=== PATIENT | female | born 1935 | race Caucasian/White ===

== ENCOUNTER → 2017-09-06 17:07 | Outpatient (CLI) | payer MEDICARE, SELFPAY ==
--- NOTE | 2017-09-06 17:10 | RAD_ITS ---
STUDY: X-RAY - LUMBAR SPINE REASON FOR EXAM: Female, 82 years old. Back pain. Leg pain. TECHNIQUE: 3 view(s) of the lumbar spine were obtained. COMPARISON: MRI of the lumbar spine, January 27, 2017. Lumbar spine, October 05, 2016. FINDINGS: Normal lumbar lordosis. There is a levoscoliosis with convexity at L2-3. There is a normal alignment of the vertebrae. There is multilevel endplate spondylosis of the lumbar vertebrae. There is multi-level degenerative disc disease with multi-level disc space narrowing. There is no evidence of acute fracture or loss of vertebral axial height. There is atherosclerotic calcification of the abdominal aorta without a demonstrated aneurysm. RAD/Lumbar Spine 2 or 3 Views IMPRESSION: Scoliosis and degenerative changes of the lumbar spine. Findings appear grossly unchanged. Electronically Signed: Pablo Marshall DO at 15:40 EDT Tel [phone], Service support ,
== END ==
PROVIDERS: Family Provider Internal Medicine; PCP Internal Medicine; Visit Provider Anesthesiology Pain Medicine
DX: M54.9 Dorsalgia, unspecified (principal); M79.606 Pain in leg, unspecified
CPT/HCPCS: 72100

== ENCOUNTER → 2017-09-27 08:37 | Outpatient (CLI) | payer MEDICARE, SELFPAY ==
--- NOTE | 2017-09-27 09:22 | BI_ITS ---
STEREOTACTIC CORE BIOPSY REASON FOR EXAM: Female, 82 years old. Microcalcifications in the superior retroareolar region of the right breast. PERTINENT HISTORY: Non-contributory. COMPARISON: None. TECHNIQUE: (All elements of maximal sterile barrier technique followed, including US elements as applicable) Upon arrival to the breast imaging department the patient's identification was confirmed and the RIGHT breast was marked according to time-out protocol. Stereotactic core biopsy and clip placement, to include potential risks and complications, was explained in full to the patient. Written and verbal consent were obtained prior to initiation of the procedure. The patient was placed in prone position on the stereotactic biopsy table with the RIGHT breast in craniocaudad compression. Major Account Manager and stereotactic views were then obtained for targeting. The RIGHT breast was prepped and draped in standard sterile fashion and local anesthesia was obtained with 1% buffered lidocaine. A small dermatotomy was then made to introduce the core biopsy needle. Multiple core samples were obtained with a 8 gauge vacuum assisted core biopsy needle. The specimen's were radiographed to determine the presence of calcifications and submitted in formalin for pathology. A titanium clip was then deployed into the biopsy cavity. Upon completion of the procedure hemostasis was obtained and sterile dressing was applied. The patient tolerated the entire procedure without immediate complication and was discharged from the breast imaging department in good condition. BI/Stereo Breast Biopsy 1st [facility] IMPRESSION: Stereotactic core biopsy for microcalcifications in the RIGHT breast without complication. Electronically Signed: Vinay Gardner MD at 11:30 EDT Tel [phone], Service support ,
--- NOTE | 2017-09-27 10:15 | BRBX_PTH ---
PATIENT: NICOLE SANZ LOC: [facility] U#:[id number] AGE/SX: 89/F ROOM: RE09/27/[address]: Dr. Vanita Bowers MD : [id number] BED: DIS: SPEC #: [id number] RECD: 09/27/17 11:40 STATUS: EMANUEL MIRTA #: [id number] MISHA: 09/27/17 10:[address]: Vanita Bowers DEPT: SURGICAL PATHOLOGY RECD BY: Xena Gar Tissues: Right breast, NOS Procedures: Surgery Specimen Level IV HEADER OPERATION: Right stereotactic breast biopsy, needle core PRE-OP DIAGNOSIS: Microcalcifications, right breast TISSUE SUBMITTED: Right breast core tissue FIXATION TIME: 9 hours MICROSCOPIC DIAGNOSIS Right breast, needle core biopsy: Focal intraductal hyperplasia without atypia and with associated microcalcifications. Focal fat necrosis. Mild fibrocystic change. No evidence of malignancy. AM:doris 09/28/17 COMMENT Microcalcifications are present and associated with areas of focal intraductal hyperplasia without atypia and in benign fatty breast tissue. Clinical correlation is suggested. MICROSCOPIC DESCRIPTION Slides are reviewed. GROSS DESCRIPTION Received is one container labeled with the patient's name and not further designated. The specimen consists of multiple elongated fragments of berg-yellow fibroadipose tissue that in aggregate measure 5 x 3 x 0.6 cm. The entire specimen is submitted in five cassettes. / SJ:doris 09/27/17 TC:5 CPT: 06157
== END ==
PROVIDERS: Family Provider Internal Medicine; PCP Internal Medicine; Visit Provider Internal Medicine
DX: N60.91 Unspecified benign mammary dysplasia of right breast (principal); N64.1 Fat necrosis of breast; N60.11 Diffuse cystic mastopathy of right breast
CPT/HCPCS: 19081; 88305; J7050; A4648

== ENCOUNTER → 2018-01-18 10:07 | Outpatient (CLI) | payer MEDICARE, SELFPAY ==
[2018-01-18 10:46] LABS: Amphetamine Urine VISTA NEGATIVE (<1000 ng/mL); Barbiturate Urine VISTA NEGATIVE (< 200 ng/mL); Benzodiazepine Urine VISTA NEGATIVE (< 200 ng/mL); Cocaine Urine VISTA NEGATIVE (< 300 ng/mL); Ecstacy Urine VISTA NEGATIVE (< 500 ng/mL); Methadone Urine VISTA NEGATIVE (< 300 ng/mL); PCP Urine VISTA NEGATIVE (< 25 ng/mL); THC Urine VISTA NEGATIVE (< 50 ng/mL); Vista UDS pH Range 5
== END ==
PROVIDERS: Family Provider Internal Medicine; PCP Internal Medicine; Visit Provider Anesthesiology Pain Medicine
DX: F11.20 Opioid dependence, uncomplicated (principal)
CPT/HCPCS: 80307

== ENCOUNTER → 2018-04-16 15:09 | Outpatient (CLI) | payer MEDICARE, SELFPAY ==
[2018-04-16 17:12] LABS: Absolute Lymphocyte Count 1.71 X10^3/ul (0.83-4.51); Absolute Neutrophil Count 4.5 X10^3/uL (2.0-7.7); Basophil# 0.04 X10^3/uL; Basophil% 0.6 % (0-1); Eosinophil# 0.29 X10^3/uL; Eosinophils% 4.1 % (0-5); Hematocrit 36.3 % (37-47); Hemoglobin 11.4 g/dl (12.0-15.0); Lymphocyte # 1.71 X10^3/ul (4.0); Lymphocyte % 24.2 % (19-41); Mean Corp Hgb Conc 31.4 g/gl (32-36); Mean Corpuscular Hgb 28.6 pg (27.0-32.0); Mean Platelet Vol. 9.9 fl (6.2-12.0); Monocyte# 0.58 X10^3/uL; Monocyte% 8.2 % (0-10); Neutrophil # 4.45 X10^3/uL (2.7-7.7); Neutrophil % 62.8 % (47-70); POSITIVE COUNT NO; POSITIVE DIFFERENTIAL NO; POSITIVE MORPHOLOGY NO; Platelet Count 335 K/mm3 (150-450); RBC Distribution Width SD 43.1 fl (35.1-43.9); Red Blood Count 3.99 M/mm3 (4.2-5.4); White Blood Count 7.1 K/mm3 (4.4-11.0)
[2018-04-16 17:32] LABS: Vitamin B12 > 2000 pg/mL (211-911); Vitamin D,25 Hydroxy 55.3 ng/mL (29.95-100.01)
[2018-04-16 18:09] LABS: AST(SGOT) 17 U/L (15-37); Alanine Aminotransfer ALT/SGPT 25 U/L (13-56); Albumin, Serum 3.3 g/dL (3.2-5.0); Alkaline Phosphatase 64 U/L (45-117); Anion Gap 9 (5-15); BUN 15 mg/dL (7-18); BUN/Creat Ratio 21.3 RATIO (10-20); Calcium,Total 8.8 mg/dL (8.5-10.1); Chloride 105 mmol/L (98-107); EST Glomerular Filtration Rate 85 mL/min (>60); Est Glom Filt Rate - Afr Amer 102 mL/min (>60); Globulin 3.4 g/dL (2.2-4.2); Glucose 95 mg/dL (74-106); Potassium 3.6 mmol/L (3.5-5.1); Protein, Total 6.7 g/dL (6.4-8.2); Sodium Level 141 mmol/L (136-145); Thyroid Stim Hormone (TSH) 1.59 uIU/mL (0.358-3.74)
[2018-04-20 07:03] LABS: Rapid Plasmin Reagin (RPR) NONREACTIVE (NONREACTIVE)
--- OUTSIDE RECORDS SUMMARY | 2018-05-29 13:39 | XMS RPT_ITS ---
:1935 Author Organization TNIP Care Team Providers Name Role Phone Zarrabi, Vanita Attending Unavailable Zarrabi, Vanita Primary Care Unavailable Zarrabi, Vanita Admitting Unavailable Zarrabi, Vanita Attending Unavailable Zarrabi, Vanita Primary Care Unavailable Zarrabi, Vanita Attending Unavailable Zarrabi, Vanita Primary Care Unavailable Zarrabi, Vanita Admitting Unavailable Zarrabi, Vanita Attending Unavailable Zarrabi, Vanita Primary Care Unavailable Zarrabi, Vanita Admitting Unavailable Zarrabi, Vanita Attending Unavailable Zarrabi, Vanita Primary Care Unavailable Zarrabi, Vanita Attending Unavailable Zarrabi, Vanita Primary Care Unavailable Zarrabi, Vanita Admitting Unavailable Zarrabi, Vanita Attending Unavailable Zarrabi, Vanita Primary Care Unavailable Zarrabi, Vanita Admitting Unavailable Zarrabi, Vanita Attending Unavailable Zarrabi, Vanita Primary Care Unavailable Zarrabi, Vanita Attending Unavailable Zarrabi, Vanita Primary Care Unavailable Zarrabi, Vanita Attending Unavailable Zarrabi, Vanita Primary Care Unavailable Zarrabi, Vanita Attending Unavailable Zarrabi, Vanita Primary Care Unavailable Zarrabi, Vanita Attending Unavailable Zarrabi, Vanita Primary Care Unavailable Zarrabi, Vanita Attending Unavailable Zarrabi, Vanita Primary Care Unavailable Zarrabi, Vanita Attending Unavailable Zarrabi, Vanita Primary Care Unavailable Basali, Ayman Attending Unavailable ZARRABI, VANITA Primary Care Unavailable ZARRABI, VANITA Attending Unavailable ZARRABI, VANITA Referring Unavailable ZARRABI, VANITA Primary Care Unavailable Basali, Ayman Attending Unavailable Basali, Ayman Referring Unavailable ZARRABI, VANITA Primary Care Unavailable Vinod, Curly Chi Attending Unavailable PROBLEMS PROBLEMS DATE TYPE CONDITION / CODE ATTENDING STATUS SOURCE 01/18/2018 Unknown 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, 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, Community uncomplicated / Hospital F11.20(ICD-10) Repository PROCEDURES PROCEDURES No Procedure Records FoundRESULTS RESULTS CBC W/DIFF, AUTOMATED Collected: 04/16/2018 Status: F Source: [place] [facility] TYPE CODE TESTS RESULT OUT OF RANGE REFERENCE UNITS LAB L100.1000 4.4-11.0 K/mm3 Normal WBC 7.1 LAB L100.1200 4.2-5.4 M/mm3 Low RBC 3.99 LAB L100.1300 12.0-15.0 g/dl Low HGB 11.4 LAB L100.1400 37-47 % Low HCT 36.3 LAB L100.1500 81-99 fL Normal MCV 91.0 LAB L100.1600 27.0-32.0 pg Normal MCH 28.6 LAB L100.1700 32-36 g/gl Low MCHC 31.4 LAB L100.1810 11.6-14.6 % Normal RDW CV 13.0 LAB L100.1820 35.1-43.9 fl Normal RDW SD 43.1 LAB L100.1900 150-450 K/mm3 Normal PLT 335 LAB L100.2000 6.2-12.0 fl Normal MPV 9.9 LAB L100.2100 47-70 % Normal NEUT% 62.8 LAB L100.2200 19-41 % Normal LY% 24.2 LAB L100.2300 0-10 % Normal MONO% 8.2 LAB L100.2400 0-5 % Normal EO% 4.1 LAB L100.2500 0-1 % Normal BASO% 0.6 LAB L100.2550 0.0-0.9 % Normal IM GRAN % 0.100 Result Comment: IG% - Immature Granulocytes (promyelocytes, myelocytes and metamyelocytes) > 1% indicates that a LEFT SHIFT is Present. LAB L100.2620 2.0-7.7 X10 3/uL Normal Absolute Neut 4.5 LAB L100.2720 0.83-4.51 X10 3/ul Normal Absolute Lymph 1.71 Performed By: #### L100.0100 #### [facility] [address] [place], [address] VITAMIN B12 Collected: 04/16/2018 Status: F Source: [place] 3:11 PM [facility] REPOSITORY TYPE CODE TESTS RESULT OUT OF REFERENCE UNITS RANGE LAB L503.0105 211-911 pg/mL High Vitamin B12 > 2000 Performed By: #### L503.0105, L506.1000 #### [facility] [address] [place], [address] VITAMIN D,25 HYDROXY Collected: 04/16/2018 Status: F Source: [place] 3:11 PM [facility] REPOSITORY TYPE CODE TESTS RESULT OUT OF RANGE REFERENCE UNITS LAB L506.1000 29.95-100.01 ng/mL Normal Vitamin D 55.3 25-OH Result Comment: Vitamin D 25(OH) Status Range Deficiency <20 ng/mL (50nmol/L) Insuffciency 20 - 30 ng/mL (50 - 75 nmol/L) Sufficiency 30 - 100 ng/mL (75 - 250 nmol/L) Toxicity >100 ng/mL (>250 nmol/L) Performed By: #### L503.0105, L506.1000 #### [facility] [address] [place], [address] COMPREHENSIVE METABOLIC Collected: 04/16/2018 Status: F Source: [place] 3:11 PM [facility] REPOSITORY Order Comment: Is Patient Taking Vitamins or Folic Acid Supplements? N TYPE CODE TESTS RESULT OUT OF RANGE REFERENCE UNITS LAB L501.0100 74-106 mg/dL Normal GLU 95 Result Comment: Please note revised GLUCOSE reference range effective 2017. LAB L501.1000 7-18 mg/dL Normal BUN 15 LAB L501.1100 0.55-1.02 mg/dL Normal CREAT,SERUM 0.70 Result Comment: The validity of the calculated GFR AND GFRAA in patients over 70 years has not been determined. Clinical correlation is essential. LAB L501.1110 >60 mL/min Normal EST GFR 85 Result Comment: Non- GFR Calc LAB L501.1115 >60 mL/min Normal EST GFR - AA 102 Result Comment: GFR Calc LAB L501.1300 10-20 RATIO High BUN/CRE 21.3 LAB L501.1500 6.4-8.2 g/dL T Normal PROT 6.7 LAB L501.1800 3.2-5.0 g/dL Normal ALB 3.3 LAB L501.1950 2.2-4.2 g/dL Normal GLOB 3.4 LAB L501.2000 0.9-2.4 RATIO Normal A/G 1.0 LAB L501.2200 8.5-10.1 mg/dL CA Normal 8.8 LAB L501.4100 15-37 U/L Normal AST 17 LAB L501.4305 45-117 U/L Normal ALK P 64 LAB L501.4405 13-56 U/L Normal ALT 25 LAB L501.4600 0.20-1.00 mg/dL T Normal BILI 0.30 LAB L501.5300 136-145 mmol/L NA Normal 141 LAB L501.5600 3.5-5.1 mmol/L K Normal 3.6 LAB L501.5900 98-107 mmol/L CL Normal 105 LAB L501.6100 21.0-32.0 mmol/L Normal CO2 27.0 LAB L501.6200 5-15 Normal GAP 9 Performed By: #### L500.4050, L501.9520, L506.0250 #### [facility] [address] [place], [address] THYROID STIM HORMONE Collected: 04/16/2018 Status: F Source: [place] (TSH) 3:11 PM [facility] REPOSITORY Order Comment: Is Patient Taking Vitamins or Folic Acid Supplements? N TYPE CODE TESTS RESULT OUT OF RANGE REFERENCE UNITS LAB L501.9520 0.358-3.74 uIU/mL Normal TSH 1.59 Performed By: #### L500.4050, L501.9520, L506.0250 #### [facility] [address] [place], [address] FOLATES, (FOLIC ACID) Collected: 04/16/2018 Status: F Source: [place] 3:11 PM [facility] REPOSITORY Order Comment: Is Patient Taking Vitamins or Folic Acid Supplements? N TYPE CODE TESTS RESULT OUT OF RANGE REFERENCE UNITS LAB L506.0250 3.1-55.4 ng/mL Normal FOLATES 54.80 Performed By: #### L500.4050, L501.9520, L506.0250 #### [facility] [address] [place], [address] RAPID PLASMIN REAGIN Collected: 04/16/2018 Status: F Source: [place] (RPR) 3:11 PM [facility] REPOSITORY TYPE CODE TESTS RESULT OUT OF REFERENCE UNITS RANGE LAB L700.5000 NONREACTIVE NONREACTIVE Normal RPR Performed By: #### L700.5000 #### [facility] [address] [place], [address] URINE DRUG SCREEN Collected: 01/18/2018 Status: F Source: [place] (VISTA) 10:11 AM [facility] REPOSITORY Order Comment: Comments: [id number] urine run lowest test List of Drugs Taken or Suspected? UNK TYPE CODE TESTS RESULT OUT OF RANGE REFERENCE UNITS LAB L505.0075 TO BE Normal CONFIRMED Result Comment: CONFIRMATORY TESTING FOR ALL POSITIVE URINE DRUG SCREEN RESULTS WILL ONLY BE SENT OUT UPON PHYSICIAN ORDER. VISTA Urine Drug Screen methods provide only preliminary analytical test results. A more specific alternate chemical method must be used in order to obtain a confirmed analytical result. Gas chromatography/mass spectrometery (GC/MS) is the preferred confirmatory method. Clinical consideration and professional judgement should be applied to any drug of abuse test result, particularly when preliminary positive results are used. URINE TCA TESTING MUST BE ORDERED SEPARATELY. USE TEST MNEMONIC: [facility] LAB L505.5005 VISTA UDS PH 5 Normal LAB L505.5015 <1000 ng/mL AMPHETAMINES Normal NEGATIVE LAB L505.5025 < 200 ng/mL BARBITIURATES Normal NEGATIVE LAB L505.5035 < 200 ng/mL BENZODIAZIPINE Normal NEGATIVE LAB L505.5045 < 300 ng/mL COCAINE Normal NEGATIVE LAB L505.5055 < 500 ng/mL ECSTACY Normal NEGATIVE LAB L505.5065 < 300 ng/mL METHADONE Normal NEGATIVE LAB L505.5075 < 300 High ng/mL OPIATES POSITIVE LAB L505.5085 < 25 ng/mL PCP Normal NEGATIVE LAB L505.5095 < 50 ng/mL THC Normal NEGATIVE Performed By: #### L505.5000 #### [facility] [address] [place], [address] MISCELLANEOUS LAB Collected: 01/18/2018 Status: F Source: [place] PROCEDURE 10:11 AM [facility] REPOSITORY Order Comment: Comments: [id number] urine run lowest test Test(s) Ordered: [id number] urine run lowest test TYPE CODE TESTS RESULT OUT OF RANGE REFERENCE UNITS LAB L801.1541 Normal [facility] [place] LAB TEST Result Comment: [id number] 6+OXYCODONE-BUND (ng/mL) DRUG RESULT SCREEN CUTOFF ____ Amphetamines,Urine Negative ng/mL 1000 Amphetamine test includes Amphetamine and Methamphetamine. Barbiturates Negative ng/mL 200 Benzodiazepines Negative ng/mL 200 Cannabinoid Negative ng/mL 20 Cocaine (Metab) Negative ng/mL 300 Opiates Negative ng/mL 300 Opiates test includes Codeine, Morphine, Hydromorphone, Hydrocodone. Oxycodone/Oxymorphone,Urine POSITIVE ng/mL 300 Test includes Oxydodone and Oxymorphone. Oxycodone Positive Oxycodone GC/MS 2315 ng/mL 300 Oxymorphone Positive Oxymorphone GC/MS 1347 ng/mL 300 TESTING PERFORMED AT [facility]. ORIGINAL REPORT ON FILE IN LAB CONTAINS ADDITIONAL TEST SITE INFORMATION. Performed By: #### L801.1541 #### [facility] [place], [address] BD BONE DENSITY DEXA Observed: 10/17/2017 Status: F Source: [place] 10:33 AM [facility] REPOSITORY Exam Date/Time: 10/17/2017 10:57 EDT Reason for Exam: OSTEOPOROSIS;Other (please specify) Report BONE DENSITY (DEXA) HISTORY: Osteopenia FINDINGS: Bone density analysis is performed through the lumbar spine and left hip. LUMBAR SPINE: BMD: 1.104 g/sq cm. T-score: 0.5 . HIP: BMD: 0.727 g/sq cm. T-score: -1.1. IMPRESSION: Normal density of the lumbar spine with decrease by 0.5% since 08/18/2015. Osteopenia of the hip with improvement by 6.6% since 08/18/2015. FINAL REPORT Dictated: 10/17/2017 3:39 pm Sonny Servin MD Signed (Electronic Signature): 10/17/2017 3:39 pm Signed by: Sonny Servin MD Technologist: MGW BREAST BIOPSY Observed: 09/27/2017 Status: F Source: [place] (CHOOSE SITE) 10:15 AM [facility] REPOSITORY Patient: JUSTINE SANZ : 1935 (82/F) Acct Num: [id number] Phys: VANITA BOWERS Unit Num: [id number] Loc: [place] Specimen: [id number] Received: 09/27/171139 Spec Type: BREAST BX TISSUES TISSUES: Right breast, NOS COMMENT Microcalcifications are present and associated with areas of focal intraductal hyperplasia without atypia and in benign fatty breast tissue. Clinical correlation is suggested. GROSS DESCRIPTION Received is one container labeled with the patient's name and not further designated. The specimen consists of multiple elongated fragments of berg-yellow fibroadipose tissue that in aggregate measure 5 x 3 x 0.6 cm. The entire specimen is submitted in five cassettes. / SJ:doris 09/27/17 TC:5 CPT: 85114 HEADER OPERATION: Right stereotactic breast biopsy, needle core PRE-OP DIAGNOSIS: Microcalcifications, right breast TISSUE SUBMITTED: Right breast core tissue FIXATION TIME: 9 hours MICROSCOPIC DESCRIPTION Slides are reviewed. MICROSCOPIC DIAGNOSIS Right breast, needle core biopsy: Focal intraductal hyperplasia without atypia and with associated microcalcifications. Focal fat necrosis. Mild fibrocystic change. No evidence of malignancy. AM:doris 09/28/17 Signed Dhaval [facility] 09/28/17 <signature on file> Performed By: #### PBRBX #### [facility] [address] [place], [address] STEREO BREAST Observed: 09/27/2017 Status: F Source: [place] BIOPSY [facility] 9:22 AM [facility] REPOSITORY [facility] Imaging Services [address] [place] [address] Stereo Breast Biopsy [facility] MR#: [id number] Acct: [id number] Name: JUSTINE SANZ Rep #: [id number] : 1935 F 82 From: Vinay Gardner MD PCP: VANITA BOWERS Status: REG CLI Study: Stereo Breast Biopsy [facility] Date of Exam: 09/27/17 Exam# [id number] Ordering Dr: Vanita Bowers STEREOTACTIC CORE BIOPSY REASON FOR EXAM: Female, 82 years old. Microcalcifications in the superior retroareolar region of the right breast. PERTINENT HISTORY: Non-contributory. COMPARISON: None. TECHNIQUE: (All elements of maximal sterile barrier technique followed, including US elements as applicable) Upon arrival to the breast imaging department the patient's identification was confirmed and the RIGHT breast was marked according to time-out protocol. Stereotactic core biopsy and clip placement, to include potential risks and complications, was explained in full to the patient. Written and verbal consent were obtained prior to initiation of the procedure. The patient was placed in prone position on the stereotactic biopsy table with the RIGHT breast in craniocaudad compression. Occupational Ther and stereotactic views were then obtained for targeting. The RIGHT breast was prepped and draped in standard sterile fashion and local anesthesia was obtained with 1% buffered lidocaine. A small dermatotomy was then made to introduce the core biopsy needle. Multiple core samples were obtained with a 8 gauge vacuum assisted core biopsy needle. The specimen's were radiographed to determine the presence of calcifications and submitted in formalin for pathology. A titanium clip was then deployed into the biopsy cavity. Upon completion of the procedure hemostasis was obtained and sterile dressing was applied. The patient tolerated the entire procedure without immediate complication and was discharged from the breast imaging department in good condition. BI/Stereo Breast Biopsy 1st Lesio IMPRESSION: Stereotactic core biopsy for microcalcifications in the RIGHT breast without complication. Electronically Signed: Vinay Gardner MD at 11:30 EDT Tel [phone], Service support , CC: VANITA BOWERS Foot Roentgenologist: Signed MA MAMM DIAG W/CAD IF Observed: 09/12/2017 Status: F Source: [place] PERFORMED RT 9:35 AM [facility] REPOSITORY Exam Date/Time: 09/12/2017 09:56 EDT Reason for Exam: ABNORMAL RIGHT BREAST MAMMO 08/21/17;Abnormal mammogram Report RIGHT DIGITAL DIAGNOSTIC MAMMOGRAMS WITH CAD COMPARISON: 08/21/2017, 08/18/2015, and 08/21/2010. FINDINGS: The right breast is examined in CC, MLO, and magnified CC and MLO projections. There is a cluster of microcalcifications, seen at about the 12 o'clock position, about 5.2 cm from the nipple. There is no associated mass lesion. There are other scattered calcifications present but these are not grouped. IMPRESSION: Suspicious area of microcalcifications at the 12 o'clock position. BI-RADS 4 - Findings demonstrate a suspicious abnormality. Stereotactic biopsy recommended. OVERALL ASSESSMENT- SUSPICIOUS A letter of notification will be sent to the patient regarding the results. Assessment / Recommendation: 4-3 Histology using core biopsy Breast density: Heterogeneously Dense Recall interval: Now FINAL REPORT Dictated: 09/12/2017 5:34 pm Sonny Servin MD Signed (Electronic Signature): 09/12/2017 5:34 pm Signed by: Sonny Servin MD Technologist: RODO Assessment: BI-RADS Category 4-Suspicious abnormality, biopsy should be considered Recommendation: Histology using core biopsy LUMBAR SPINE 2 OR 3 Observed: 09/06/2017 Status: F Source: [place] VIEWS 5:18 PM [facility] REPOSITORY [facility] Imaging Services [address] [place] [address] Lumbar Spine 2 or 3 Views MR#: [id number] Acct: [id number] Name: JUSTINE SANZ Rep #: [id number] : 1935 F 82 From: Pablo Marshall DO PCP: VANITA BOWERS Status: REG CLI Study: Lumbar Spine 2 or 3 Views Date of Exam: 09/06/17 Exam# [id number] Ordering Dr: Norman Hsu MD STUDY: X-RAY - LUMBAR SPINE REASON FOR EXAM: Female, 82 years old. Back pain. Leg pain. TECHNIQUE: 3 view(s) of the lumbar spine were obtained. COMPARISON: MRI of the lumbar spine, January 27, 2017. Lumbar spine, October 05, 2016. FINDINGS: Normal lumbar lordosis. There is a levoscoliosis with convexity at L2-3. There is a normal alignment of the vertebrae. There is multilevel endplate spondylosis of the lumbar vertebrae. There is multi-level degenerative disc disease with multi-level disc space narrowing. There is no evidence of acute fracture or loss of vertebral axial height. There is atherosclerotic calcification of the abdominal aorta without a demonstrated aneurysm. RAD/Lumbar Spine 2 or 3 Views IMPRESSION: Scoliosis and degenerative changes of the lumbar spine. Findings appear grossly unchanged. Electronically Signed: Pablo Marshall DO at 15:40 EDT Tel [phone], Service support , CC: Norman Hsu MD; VANITA BOWERS Foot Roentgenologist: Signed MA MAMM SCREEN W/CAD Observed: 08/21/2017 Status: F Source: [place] IF PERFORMED [place] 10:06 AM [facility] REPOSITORY Exam Date/Time: 08/21/2017 10:20 EDT Reason for Exam: SCREENING;Screening Report BILATERAL DIGITAL SCREENING MAMMOGRAMS WITH CAD: COMPARISON: 08/18/2015, 08/21/2000 and 05/07/1999. FINDINGS: There is a focus of microcalcifications, in the right breast on the MLO projection, about 5 cm from the nipple not confirmed on the CC view. On the CC view of the same breast there is a suggestion of spiculation in the lateral portion of the breast. Magnification views are recommended in the areas marked. The left breast remains unremarkable. There are benign scattered calcifications present bilaterally. A skin mole is seen on the inferior portion of the left breast medially. IMPRESSION: Possible microcalcifications and/or spiculation in the lateral portion of the right breast with further evaluation with magnification views recommended. BI-RADS 0 - Need additional imaging evaluation at this time. OVERALL ASSESSMENT- NEED ADDITIONAL IMAGING EVALUATION. A letter of notification will be sent to the patient regarding the results. Assessment / Recommendation: 0-2 Magnification views Breast density: Scattered Fibroglandular Density Recall interval: Now FINAL REPORT Dictated: 08/21/2017 5:40 pm Sonny Servin MD Signed (Electronic Signature): 08/21/2017 5:40 pm Signed by: Sonny Servin MD Technologist: JACKIE Assessment: BI-RADS Category 0-Incomplete: Need additional imaging evaluation Recommendation: Magnification views CMP Collected: 07/22/2017 Status: F Source: [place] 9:41 AM [facility] REPOSITORY TYPE CODE TESTS RESULT OUT OF RANGE REFERENCE UNITS LAB 94138424(L 70-99 mg/dL OINC) Glucose Normal Lvl 96 LAB 68473240(L 8.4-10.2 mg/dL OINC) Calcium Normal Lvl 9.6 LAB 14327524(L 136-145 mEq/L OINC) Sodium Normal Lvl 138 LAB 49582551(L 3.5-5.1 mEq/L OINC) Normal Potassium Lvl 4.5 LAB 90626114(L 98-107 mEq/L OINC) Chloride Normal 101 LAB 69211622(L 24.0-30.0 mEq/L OINC) CO2 Normal 29.4 LAB 91378969(L 7-18 mg/dL OINC) BUN Normal 15 LAB 5105657(LO 0.6-1.3 mg/dL INC) Normal Creatinine 0.7 LAB 51026126(L 42-121 Int._Unit/ OINC) L Alk Phos Normal 52 LAB 33335392(L 0.2-1.0 mg/dL OINC) Bili Normal Total 0.7 LAB 34040643(L 3.2-5.0 G/DL OINC) Albumin Normal Lvl 4.1 LAB 23459855(L 6.4-8.3 G/DL OINC) Total Normal Protein 7.0 LAB 13520510(L 10-40 Int._Unit/ OINC) L ALT Normal 15 LAB 87627477(L 10-42 Int._Unit/ OINC) L AST Normal 17 LAB 50781500(L 5.4-30.0 ratio OINC) Normal BUN/Creat Ratio 21.4 LAB 97520857(L 2.0-4.0 G/DL OINC) Globulin Normal 2.9 LAB 55578625(L 1.1-1.9 ratio OINC) A/G Normal Ratio 1.4 Performed By: #### [id number] #### [place]LE [place] [id number] EGFR Collected: 07/22/2017 Status: F Source: [place] 9:41 AM [facility] REPOSITORY Order Comment: Order added by Discern Expert. TYPE CODE TESTS RESULT OUT OF RANGE REFERENCE UNITS LAB 60099591(LO mL/min/1.73 INC) m2 Normal eGFR >60 LAB 78973936(LO mL/min/1.73 INC) m2 Normal eGFR AA >60 Performed By: #### [id number] #### NICOLE [facility] [address] [place], [place] [address] LIPID PROFILE Collected: 07/22/2017 Status: F Source: [place] 9:41 AM [facility] REPOSITORY TYPE CODE TESTS RESULT OUT OF RANGE REFERENCE UNITS LAB 68088946(LO 50-200 mg/dL INC) Normal Chol 200 Result Comment: TOTAL CHOLEESTEROL: <200 NORMAL 200 - 239 BORDERLINE HIGH >240 HIGH LAB 21664784(LOINC) >=41 mg/dL Normal HDL 56 LAB 19710423(LOINC) 0-130 mg/dL Normal LDL 124 Result Comment: <100 OPTIMAL 100-129 NEAR / ABOVE OPTIMAL 130-159 BORDERLINE HIGH 160-189 HIGH >190 VERY HIGH CALC LDL NOT VALID WHEN TRIGLYCERIDE IS >400 MG/DL LAB 37641043(LOINC) 35-150 mg/dL Normal Trig 101 Result Comment: <150 NORMAL 150-199 BORDERLINE HIGH 200-499 HIGH >500 VERY HIGH LAB 58188094(LOINC) Normal VLDL 20 Performed By: #### [id number] #### NICOLE [facility] [address] [place], [place] [address] VITAMIN D 25 HYDROXY Collected: 07/22/2017 Status: F Source: [place] 9:41 AM [facility] REPOSITORY TYPE CODE TESTS RESULT OUT OF RANGE REFERENCE UNITS LAB 490115675(L 30.0-100.0 ng/mL OIPR) Normal Vitamin D 25 54.1 Hydroxy Performed By: #### [id number] #### NICOLE [facility] [address] [place] [address] HGBA1C Collected: 07/22/2017 Status: F Source: [place] 9:41 AM [facility] REPOSITORY TYPE CODE TESTS RESULT OUT OF RANGE REFERENCE UNITS LAB 583144342( 4.0-6.3 % LOINC) Normal Hemoglobin A1c 5.4 Performed By: #### [id number] #### NICOLE Chemistry Manual Subsection [address] [place] [address] ALLERGIES ALLERGIES DATE TYPE / CODE NAME / CODE REACTION SEVERITY SOURCE Drug/096503 No Known [facility] System Repository ENCOUNTERS ENCOUNTERS ADMIT/DISCHARGE ACCOUNT NUMBER ADMITTING ENCOUNTER LOCATION SOURCE CLASS 04/16/2018 [id number] Ambulatory [facility] ding:POLAB3 Repository 01/18/2018 [id number] Ambulatory [facility] ding:[place] Repository IM 01/18/2018/01/19/20 [id number] Ambulatory [address] ding:[place] Repository IMRoom: Room 4 01/18/2018 [id number] Ambulatory [facility] ding:LAB Repository 12/28/2017/12/29/19 [id number] Ambulatory [address] ding:[place] Repository IMRoom: Room 2 10/31/2017/11/01/19 [id number] Ambulatory [address] ding:[place] Repository IMRoom: Room 2 10/17/2017/10/18/[id number] ding:[facility] Repository 10/17/[id number] Repository 10/04/2017/10/05/19 [id number] Ambulatory [address] ding:[place] Repository IMRoom: Room 1 09/27/2017 [id number] [facility] ding:[facility] Repository 09/26/2017/09/27/19 [id number] Ambulatory [address] ding:[facility] Repository IM 09/12/2017/09/13/19 [id number] Ambulatory [address] ding:[place] Repository IMRoom: Room 2 09/12/2017/09/13/[id number] [address] ding:[facility] Repository 09/06/2017 [id number] Ambulatory [facility] ding:RAD Repository 08/21/2017/08/22/19 [id number] [place], Ambulatory [address] ding:[facility]. [facility] Repository 07/27/2017/07/28/19 [id number] Ambulatory [address] ding:[place] Repository IMRoom: Room 1 07/22/2017/07/23/19 [id number] [facility], [address] ding:[facility] Repository 05/30/2017/05/30/19 [id number] Ambulatory [address] ding:[facility] Repository IM 05/30/2017/05/30/19 [id number] [facility], [facility] [address] [facility] IMR[facility]: Room 2 PAYERS PAYERS ENCOUNTER GUARANTOR PAYER SUBSCRIBER SOURCE 04/16/2018 JUSTINE Hanna Primary Insurance:[facility] JUSTINE Hanna [place] [id number] [facility] STROVERDOB: Community Raad Garcia Number: [id number] [id number] Rep[place] [id number]: 419) Date:1197-10-04GY [phone] () [address] [place] [address]XN: 04/16/2018 Secondary NOT GIVENUNK Jairo Insurance:SELF PAY [facility] Number: Effective Repository Date:2018-04-16 01/18/2018 JUSTINE Hanna Primary JUSTINE M Mormonism STROVERDOB: Insurance:WICHITA STROVERDOB: [facility] [id number] HEALTHCARE MEDICARE [id number] System [address] GREEN 1500Policy [address] Repository [place] Number: [place], [place] [id number]: Date:2018-01-18 [id number]: [id number] () Name:CD:[id number] ()Tel: 000) [address] [place] [address] 000-0000 ([place] [address]PC: 01/18/2018 JUSTINE Hanna Primary JUSTINE Goodman STROVERDOB: Insurance:UNITED STROVERDOB: [facility] HEALTHCARE MEDICARE [id number] SOLUTIONS [address] Repository [place] Number: [place], [place] [id number]: Date:2017-12-28 [id number]: [id number] (HP) Name:CD:[id number] PO (HP)Tel: (000) [address] 000-0000 ([place] [address]NE: 01/18/2018 JUSTINE Hanna Primary Insurance:[facility] JUSTINE Hanna Clarkia [id number] [facility] SOLUTIONSPolicy STROVERDOB: [address] Number: [id number] [id number] Repository [address]Fsa: (419) Date:1830-98-38ZU [phone] () [address] [place], [place] [phone]: 01/18/2018 Secondary NOT GIVENUNK Jairo Insurance:SELF PAY [facility] Number: Effective Repository Date:2018-01-18 12/28/2017 JUSTINE Hanna Primary JUSTINE Goodman STROVERDOB: Insurance:WICHITA STROVERDOB: [facility] HEALTHCARE MEDICARE [id number] [address] SOLUTIONS [address]Policy [address] Repository [place] Number: [place] [id number]: Date:2017-10-31 [id number]: [id number] (HP) Name:CD:[id number] PO (HP)Tel: (000) [address] [place] [address] 000-0000 () [place] [phone]: 10/31/[address] [facility] JUSTINE Mormonism STROVERDOB: Insurance:UNITED STROVERDOB: [facility] HEALTHCARE MEDICARE [id number] System CINNAMCARISA GARCIA SOLUTIONS [facility] [address] Repository [place] Number: Effective [place] [id number]: Date:2017-10-04 [id number]: [id number] (HP) Name:CD:[id number] ()Tel: (000) [address] [place] [address] 000-0000 () [place] [phone]: 10/17/[address] [facility] JUSTINE [facility] STROVERDOB: Insurance:WICHITA STROVERDOB: [facility] [id number] System RAAD GARCIA Number: Effective 5 [address] Repository [place] Date:2017-08-21 - [facility] [place], [place] [id number]: [id number] [id number]: Name:CD:[id number] Box (HP) [address] [place] [address] ()Tel: (000) [place] [address]QQ: () [phone] 10/17/2017 [facility] STROVERDOB: Insurance:United STROVERDOB: [facility] [id number] Repository RAAD GARCIA [place]: 5 [address] [place], [place] [id number] [place] [id number]: Date:Plan Name:Health [id number]: (HP) (HP) 10/04/2017 JUSTINE Hanna Primary JUSTINE M Mormonism STROVERDOB: Insurance:UNITED STROVERDOB: [facility] HEALTHCARE MEDICARE [id number] SOLUTIONS [address] [place], [place] Number: Effective [facility] [place] [id number]: Date:2017-09-13 - [id number]: [id number] (HP) Name:CD:[id number] PO (HP)Tel: (000) [address] [address] 000-0000 () [place] [address]AW: 09/27/2017 Justine Primary Insurance:[facility] Justine Jairo [id number] [facility] StroverDOB: Community Cinnamcarisa Garcia Number: [id number], [place] [id number] Repository [address]Zdj: (419) Date:5588-95-80CP [phone] (HP) [address] [place] [address]PK: 09/27/2017 Secondary NOT GIVENUNK Jairo Insurance:SELF PAY [facility] Number: Effective Repository Date:2017-09-13 09/26/2017 JUSTINE M Primary JUSTINE Goodman STROVERDOB: Insurance:UNITED STROVERDOB: [facility] HEALTHCARE MEDICARE [id number] SOLUTIONS [address]Policy [address] [place], [place] Number: [place] [id number]: Date:2017-07-27 [id number]: [id number] (HP) Name:CD:[id number] PO (HP)Tel: (000) [address] 000-0000 () [place] [address]TP: 09/12/2017 JUSTINE M Primary JUSTINE Goodman STROVERDOB: Insurance:UNITED STROVERDOB: [facility] HEALTHCARE MEDICARE [id number] System CINNAMCARISA GARCIA SOLUTIONS [address]Policy [address] Repository [place] Number: [place] [id number]: Date:2017-09-12 [id number]: [id number] (HP) Name:CD:[id number] ()Tel: (000) [address] 000-0000 (WP) [place] [address]KJ: 09/12/2017 JUSTINE M Primary JUSTINE M Mormonism STROVERDOB: Insurance:WICHITA STROVERDOB: [facility] [id number] System RAAD GARCIA Number: Effective [address] Repository [place] Date:2017-08-23 - [place] [id number]: [id number] [id number]: Name:CD:[id number].O. Box (HP) [address] [place] [address] ()Tel: (000) [place] [address]LG: (WP) [phone] 09/06/2017 Justine Primary Insurance:[facility] Justine Jairo [id number] [facility] StroverDOB: Community Raad Garcia Number: [id number] [id number] Repository [address]Czr: Date:1994-65-68HD [phone]~21 [address]ZLAGAWENDAW, 6-5 (HP) [place] [address]CX: 09/06/2017 Secondary NOT GIVENUNK Jairo Insurance:SELF PAY [facility] Number: Effective Repository Date:2017-09-06 08/21/2017 JUSTINE M Primary JUSTINE M Mormonism STROVERDOB: Insurance:UNITED STROVERDOB: [facility] [id number] Number: Effective [address] Repository [facility], [place] Date:2017-03-29 - [place] [id number]: [id number] [id number]: Name:CD:[id number].O. Box (HP) [address] [place] [address], (HP)Tel: (000) [place] [address]MS: (WP) [phone] 07/27/2017 JUSTINE M Primary JUSTINE Goodman STROVERDOB: Insurance:WICHITA STROVERDOB: [facility] HEALTHCARE MEDICARE [id number] SOLUTIONS [facility] [address] Repository [facility], [place] Number: Effective [place] [id number]: Date:2017-05-30 - [id number]: [id number] (HP) Name:CD:[id number] (HP)Tel: (000) [address] [place] [address] 000-0000 (WP) [place] [address]QZ: 07/22/2017 JUSTINE Hanna Primary JUSTINE Goodman STROVERDOB: Insurance:WICHITA STROVERDOB: [facility] [id number] [address] Number: Effective [address] Repository [facility], [place] Date:2017-07-22 - [place] [id number]: [id number] [id number]: Name:CD:[id number].O. Box (HP) [address] [place] [address], (HP)Tel: (000) [place] [address]CV: (WP) [phone] 05/30/2017 JUSTINE M Primary JUSTINE Goodman STROVERDOB: Insurance:WICHITA STROVERDOB: [facility] HEALTHCARE MEDICARE [id number] SOLUTIONS [address]Policy [address] [place] Number: Effective TARIQ JEFFERY [id number]: Date:2017-03-28 [id number]: [id number] (HP) Name:CD:[id number] PO (HP)Tel: (000) [address] 000-0000 (WP) [place] [address]ZO: 05/30/2017 JUSTINE M Primary JUSTINE Goodman STROVERDOB: [facility] HEALTHCARE MEDICARE [id number] SOLUTIONS [address]Policy [address] Repository [facility] [place], [place] Number: Effective TARIQ JEFFERY [id number]: Date:2017-05-30 [id number]: [id number] (HP) Name:CD:[id number] PO (HP)Tel: (000) [address] [address]zwu [address] 000-0000 (WP) [place] [address]FW:
== END ==
PROVIDERS: Visit Provider Family Medicine Geriatric Medicine
DX: E53.8 Deficiency of other specified B group vitamins (principal); E55.9 Vitamin D deficiency, unspecified; F05 Delirium due to known physiological condition; I10 Essential (primary) hypertension
CPT/HCPCS: 36415; 80053; 82306; 82607; 82746; 84443; 85025; 86592

== ENCOUNTER → 2018-07-10 13:52 | Outpatient (CLI) | payer MEDICARE, SELFPAY ==
--- NOTE | 2018-07-10 13:55 | RAD_ITS ---
STUDY: X-RAY - LEFT FOOT CLINICAL: Female, 82 years old. Pain TECHNIQUE: 3 view(s) of the foot. COMPARISON: None. FINDINGS: There is no evidence of fracture or dislocation. There are mild degenerative changes in the midfoot and in the interphalangeal joints. There are no radiodense foreign bodies. RAD/Foot min 3 Views IMPRESSION: No fracture or dislocation. Mild degenerative change. Electronically Signed: Cornelio Delgadillo, at 16:55 EST Tel , Service support ,
== END ==
PROVIDERS: Family Provider Family Medicine Geriatric Medicine; PCP Family Medicine Geriatric Medicine; Referring Provider Family Medicine Geriatric Medicine; Visit Provider Family Medicine Geriatric Medicine
DX: M79.672 Pain in left foot (principal)
CPT/HCPCS: 73630

== ENCOUNTER → 2018-10-17 | Outpatient (CLI) | payer MEDICARE, SELFPAY ==
[2018-10-17 13:03] LABS: Absolute Lymphocyte Count 1.74 X10^3/ul (0.83-4.51); Absolute Neutrophil Count 5.5 X10^3/uL (2.0-7.7); Basophil# 0.02 X10^3/uL; Basophil% 0.2 % (0-1); Eosinophil# 0.12 X10^3/uL; Eosinophils% 1.4 % (0-5); Hematocrit 39.3 % (37-47); Hemoglobin 12.6 g/dl (12.0-15.0); Lymphocyte # 1.74 X10^3/ul (4.0); Lymphocyte % 20.5 % (19-41); Mean Corp Hgb Conc 32.1 g/gl (32-36); Mean Corpuscular Hgb 28.3 pg (27.0-32.0); Mean Corpuscular Volume 88.3 fL (81-99); Mean Platelet Vol. 10.3 fl (6.2-12.0); Monocyte# 0.96 X10^3/uL; Monocyte% 11.3 % (0-10); Neutrophil # 5.53 X10^3/uL (2.7-7.7); Neutrophil % 65.4 % (47-70); Platelet Count 421 K/mm3 (150-450); RBC Distribution Width CV 12.9 % (11.6-14.6); RBC Distribution Width SD 40.9 fl (35.1-43.9); Red Blood Count 4.45 M/mm3 (4.2-5.4); White Blood Count 8.5 K/mm3 (4.4-11.0)
[2018-10-17 13:04] LABS: POSITIVE COUNT NO; POSITIVE DIFFERENTIAL NO; POSITIVE MORPHOLOGY NO
[2018-10-17 13:22] LABS: Vitamin D,25 Hydroxy 75.6 ng/mL (29.95-100.01)
[2018-10-17 13:26] LABS: ALB/GLOB Ratio 0.9 RATIO (0.9-2.4); AST(SGOT) 26 U/L (15-37); Alanine Aminotransfer ALT/SGPT 32 U/L (13-56); Albumin, Serum 3.4 g/dL (3.2-5.0); Alkaline Phosphatase 66 U/L (45-117); Anion Gap 8 (5-15); BUN 17 mg/dL (7-18); BUN/Creat Ratio 19.1 RATIO (10-20); Calcium,Total 9.2 mg/dL (8.5-10.1); Chloride 102 mmol/L (98-107); Creatinine, Serum 0.89 mg/dL (0.55-1.02); EST Glomerular Filtration Rate 65 mL/min (>60); Est Glom Filt Rate - Afr Amer 78 mL/min (>60); Globulin 3.7 g/dL (2.2-4.2); Glucose 82 mg/dL (74-106); Potassium 3.8 mmol/L (3.5-5.1); Protein, Total 7.1 g/dL (6.4-8.2); Sodium Level 138 mmol/L (136-145); Thyroid Stim Hormone (TSH) 1.99 uIU/mL (0.358-3.74)
== END | disposition home or self-care (01) ==
PROVIDERS: Family Provider Family Medicine Geriatric Medicine; PCP Family Medicine Geriatric Medicine; Visit Provider Family Medicine Geriatric Medicine
DX: E55.9 Vitamin D deficiency, unspecified (principal); I10 Essential (primary) hypertension
CPT/HCPCS: 36415; 80053; 82306; 84443; 85025

== ENCOUNTER → 2019-10-17 12:31 | Outpatient (CLI) | payer MEDICARE, SELFPAY ==
[2019-10-17 13:56] LABS: Amphetamine Urine VISTA NEGATIVE (<1000 ng/mL); Barbiturate Urine VISTA NEGATIVE (< 200 ng/mL); Benzodiazepine Urine VISTA POSITIVE (< 200 ng/mL); Cocaine Urine VISTA NEGATIVE (< 300 ng/mL); Ecstacy Urine VISTA NEGATIVE (< 500 ng/mL); Methadone Urine VISTA NEGATIVE (< 300 ng/mL); PCP Urine VISTA NEGATIVE (< 25 ng/mL); THC Urine VISTA NEGATIVE (< 50 ng/mL); Vista UDS pH Range 5
== END ==
PROVIDERS: Referring Provider Anesthesiology Pain Medicine; Visit Provider Anesthesiology Pain Medicine
DX: F11.20 Opioid dependence, uncomplicated (principal)
CPT/HCPCS: 80307

== ENCOUNTER → 2020-03-04 10:45 | Outpatient (CLI) | payer MEDICARE, SELFPAY ==
--- NOTE | 2020-03-04 10:52 | RAD_ITS ---
STUDY: X-RAY - RIGHT KNEE REASON FOR EXAM: Female, 84 years old. PATIENT FELL ONTO RIGHT KNEE SEVERAL WEEKS AGO PER PATIENT. TECHNIQUE: 4 view(s) of the knee. COMPARISON: None. FINDINGS: The knee is intact and located moderate degenerative change in all 3 compartments. Mineralization is decreased. Soft tissues are normal. RAD/Knee 4 or More Views IMPRESSION: No acute osseous injury. Moderate degeneration. Electronically Signed: Hunter Ronquillo, at 15:54 EDT Tel , Service support ,
== END ==
PROVIDERS: Referring Provider Anesthesiology Pain Medicine; Visit Provider Anesthesiology Pain Medicine
DX: M25.561 Pain in right knee (principal)
CPT/HCPCS: 73564